=== PATIENT | male | born 1975 | race African-American/Black ===

== ENCOUNTER 2017-08-11 00:40 | Emergency (ER) | payer MEDICAID ==
[~2017-08-11] VITALS: Ht 182.9 cm; Wt 85.0 kg
[~2017-08-11 00:40] MED LIST: ARIP30TA2; DIPH50CA4; GEODON; LURA20TA; TRILIPTAL
[2017-08-11] MEDS ORDERED: KETOROLAC 60MG/2ML VIAL IM STA (07:59)
[2017-08-11] MEDS ORDERED: CYCLOBENZAPRINE 10MG TABLET PO ONE (08:00)
[2017-08-11 10:13] VITALS: BP 130/88
== END 2017-08-11 10:14 | disposition home or self-care (01) ==
LOC: ER 00:40
DX: M54.41 Lumbago with sciatica, right side (principal); Z88.0 Allergy status to penicillin
CPT/HCPCS: 72100; 96372; 99284; J1885

== ENCOUNTER 2019-10-05 18:59 | Emergency (ER) | payer MEDICAID ==
[~2019-10-05] VITALS: Ht 185.4 cm; Wt 86.0 kg
[2019-10-05] MEDS ORDERED: KETOROLAC 30MG/ML VIAL IM ONE (20:15)
[2019-10-05 21:15] VITALS: BP 127/79
== END 2019-10-05 21:16 | disposition home or self-care (01) ==
LOC: ER 18:59
DX: M62.830 Muscle spasm of back (principal); M54.30 Sciatica, unspecified side; F31.9 Bipolar disorder, unspecified; Z88.0 Allergy status to penicillin
CPT/HCPCS: 96372; 99283; J1885

== ENCOUNTER 2020-12-12 07:21 | Emergency (ER) | payer MEDICAID ==
[~2020-12-12] VITALS: Ht 172.7 cm; Wt 78.0 kg
[2020-12-12] MEDS ORDERED: ARIP15TA7 PO (08:17)
[2020-12-12] MEDS ORDERED: LURA20TA PO (08:19)
[2020-12-12 09:34] VITALS: BP 110/74
== END 2020-12-12 09:28 | disposition home or self-care (01) ==
LOC: ER 07:41
DX: Z76.0 Encounter for issue of repeat prescription (principal); F31.9 Bipolar disorder, unspecified; Z91.14 Patient's other noncompliance with medication regimen; Z88.0 Allergy status to penicillin
CPT/HCPCS: 99283

== ENCOUNTER 2021-02-16 19:36 | Emergency (ER) | payer MEDICAID ==
[~2021-02-16] VITALS: Ht 185.4 cm; Wt 90.0 kg
[~2021-02-16 19:36] MED LIST changes: +ARIP15TA14 PO; +LURA20TA PO
[2021-02-16 23:59] VITALS: BP 113/79
[2021-02-17 00:13] LABS: BASOPHILS % 0.5 % (0.0-2.0); EOSINOPHILS % 0.3 % (0.0-5.0); HEMATOCRIT. 41.4 % (42.0-52.0); HEMOGLOBIN. 14.7 g/dL (14.0-18.0); LYMPHOCYTES % 19.6 % (20.0-50.0); MEAN CORPUSCULAR HEMOGLOBIN 33.5 pg (28.0-32.0); MEAN CORPUSCULAR VOLUME 94.2 fL (80.0-94.0); MEAN PLATELET VOLUME 9.1 fl (7.4-10.4); MONOCYTES % 5.7 % (2.0-8.0); NEUTROPHILS % 73.9 % (40.0-76.0); PLATELET 185 x1000/uL (130-400); RED CELL DISTRIBUTION WIDTH 12.8 % (11.6-14.6)
[2021-02-17 00:22] LABS: CLARITY URINE CLEAR (CLEAR); COLOR URINE YELLOW (YELLOW); KETONES URINE TRACE (NEGATIVE); LEUKOCYTE ESTERASE URINE TRACE (NEGATIVE); NITRITE URINE NEGATIVE (NEGATIVE); OCCULT BLOOD URINE NEGATIVE (NEGATIVE); PH URINE 6.5 (4.5-8.0); PROTEIN URINE 1+ (NEGATIVE); SPECIFIC GRAVITY URINE 1.029 (1.005-1.030)
[2021-02-17 00:39] LABS: OPIATES URINE SCREEN NEGATIVE (NEGATIVE); PHENCYCLIDINE URINE SCREEN NEGATIVE (NEGATIVE)
[2021-02-17 00:40] LABS: *AMPHETAMINES SCREEN URINE NEGATIVE (NEGATIVE); *BARBITURATES SCREEN URINE NEGATIVE (NEGATIVE); *BENZODIAZEPINES SCREEN URINE NEGATIVE (NEGATIVE); *COCAINE SCREEN URINE NEGATIVE (NEGATIVE); CANNABINOID URINE SCREEN PRESUMTIVE POSITIVE (NEGATIVE); METHADONE URINE SCREEN NEGATIVE (NEGATIVE)
[2021-02-17 00:53] LABS: CHLORIDE 109 mEq/L (98-107)
[2021-02-17 00:57] LABS: ETHANOL BLOOD < 10 mg/dL
[2021-02-17] MEDS ORDERED: MAGNESIUM/ALUMINUM HYDROXIDE/SIMETHICONE 30ML UDC PO ONE (01:15)
[2021-02-17] MEDS ORDERED: OMEP20CA14 MT (01:57)
== END 2021-02-17 02:48 | disposition home or self-care (01) ==
LOC: ER 19:36
DX: R10.13 Epigastric pain (principal); F41.9 Anxiety disorder, unspecified; Z79.899 Other long term (current) drug therapy; Z88.0 Allergy status to penicillin
CPT/HCPCS: 36415; 71045; 80053; 80305; 80320; 81003; 84484; 85025; 93005; 99285; G0480

== ENCOUNTER 2021-07-26 05:55 | Emergency (ER) | payer MEDICAID ==
[~2021-07-26] VITALS: Ht 185.4 cm; Wt 80.0 kg
[~2021-07-26 05:55] MED LIST changes: +OMEP20CA14 MT
[2021-07-26 06:30] VITALS: BP 133/91
[2021-07-26] MEDS ORDERED: KETOROLAC 60MG/2ML VIAL IM STA (08:24)
[2021-07-26 09:17] LABS: CLARITY URINE CLEAR (CLEAR); COLOR URINE YELLOW (YELLOW); KETONES URINE NEGATIVE (NEGATIVE); LEUKOCYTE ESTERASE URINE NEGATIVE (NEGATIVE); NITRITE URINE NEGATIVE (NEGATIVE); OCCULT BLOOD URINE NEGATIVE (NEGATIVE); PH URINE 6.5 (4.5-8.0); PROTEIN URINE NEGATIVE (NEGATIVE); SPECIFIC GRAVITY URINE 1.014 (1.005-1.030); UROBILINOGEN URINE 0.2 E.U./dL (0.2-1.0)
[2021-07-26 09:27] LABS: BASOPHILS % 0.5 % (0.0-2.0); HEMATOCRIT. 48.8 % (42.0-52.0); HEMOGLOBIN. 16.7 g/dL (14.0-18.0); LYMPHOCYTES % 26.1 % (20.0-50.0); MEAN CORPUSCULAR HEMOGLOBIN 32.4 pg (28.0-32.0); MEAN CORPUSCULAR VOLUME 94.7 fL (80.0-94.0); MONOCYTES % 9.6 % (2.0-8.0); NEUTROPHILS % 62.8 % (40.0-76.0); PLATELET 182 x1000/uL (130-400); RED BLOOD CELL COUNT 5.16 mill/uL (4.7-6.1); RED CELL DISTRIBUTION WIDTH 14.1 % (11.6-14.6)
[2021-07-26 09:34] LABS: CHLORIDE 105 mEq/L (98-107)
[2021-07-26] MEDS ORDERED: LIDO700A30 TP (12:32)
[2021-07-26] MEDS ORDERED: METH-653 MT (12:35)
== END 2021-07-26 13:02 | disposition home or self-care (01) ==
LOC: ER 05:55
DX: M54.50 Low back pain, unspecified (principal); R05.9 Cough, unspecified; Z79.899 Other long term (current) drug therapy; Z88.0 Allergy status to penicillin
CPT/HCPCS: 36415; 74176; 80053; 81003; 83605; 83690; 85025; 96372; 99284; J1885

== ENCOUNTER 2021-10-28 01:24 | Emergency (ER) | payer MEDICAID ==
[~2021-10-28] VITALS: Ht 180.3 cm; Wt 82.0 kg
[~2021-10-28 01:24] MED LIST changes: -DIPH50CA4; +DIPH50CA41; +LIDO700A30 TP; +METH-653 MT
[2021-10-28 03:18] LABS: BASOPHILS % 0.6 % (0.0-2.0); EOSINOPHILS % 0.6 % (0.0-5.0); HEMATOCRIT. 44.2 % (42.0-52.0); HEMOGLOBIN. 15.4 g/dL (14.0-18.0); LYMPHOCYTES % 29.2 % (20.0-50.0); MEAN CORPUSCULAR HEMOGLOBIN 32.5 pg (28.0-32.0); MEAN CORPUSCULAR VOLUME 93.6 fL (80.0-94.0); MEAN PLATELET VOLUME 9.6 fl (7.4-10.4); NEUTROPHILS % 62.6 % (40.0-76.0); PLATELET 172 x1000/uL (130-400); RED BLOOD CELL COUNT 4.73 mill/uL (4.7-6.1); RED CELL DISTRIBUTION WIDTH 13.2 % (11.6-14.6)
[2021-10-28 03:21] LABS: CHLORIDE 106 mEq/L (98-107)
[2021-10-28] MEDS ORDERED: IBUP-2029 MT (04:27)
[2021-10-28] MEDS ORDERED: CLIN-116 MT (04:27)
[2021-10-28 06:14] VITALS: BP 143/87
== END 2021-10-28 06:14 | disposition home or self-care (01) ==
LOC: ER 01:24
DX: R07.89 Other chest pain (principal); R07.0 Pain in throat; Z88.0 Allergy status to penicillin
CPT/HCPCS: 36415; 71045; 80053; 83880; 84484; 85025; 85379; 93005; 99285

== ENCOUNTER 2025-01-31 21:01 | Emergency (ER) | payer MEDICAID ==
[~2025-01-31] VITALS: Ht 182.9 cm; Wt 78.0 kg
[~2025-01-31 21:01] MED LIST changes: -ARIP15TA14 PO; +ARIP15TA66 PO; +CLIN-116 MT; +IBUP-1455 MT
[2025-02-01] MEDS: KETOROLAC 30MG/ML VIAL IM ONE (01:40)
[2025-02-01] MEDS ORDERED: PROPOFOL 200MG/20ML VIAL IV ONE ×2 (02:15→03:21)
[2025-02-01] MEDS ORDERED: ONDANSETRON HCL 4MG/2ML INJ IV ONE (02:15)
[2025-02-01 03:00] VITALS: O2SAT 100
[2025-02-01] MEDS ORDERED: ONDANSETRON HCL 4MG/2ML INJ ONE (03:21)
[2025-02-01 05:20] VITALS: BP 145/84; PULSE 63; RESP 15; TEMP 36.8; O2SAT 99
[2025-02-01] MEDS ORDERED: NAPR-1176 MT (05:23)
[2025-02-01] MEDS ORDERED: PROPOFOL 10MG/ML 100ML 100 ML IV SCH (05:30)
[2025-02-01] MEDS ORDERED: ONDANSETRON HCL 4MG/2ML INJ IV NR (05:45)
== END 2025-02-01 05:38 | disposition home or self-care (01) ==
LOC: ER 21:01
DX: S42.101A Fracture of unspecified part of scapula, right shoulder, initial encounter for closed fracture (principal); S43.004A Unspecified dislocation of right shoulder joint, initial encounter; Z79.1 Long term (current) use of non-steroidal anti-inflammatories (NSAID); Z79.899 Other long term (current) drug therapy; Z88.0 Allergy status to penicillin; V00.141A Fall from scooter (nonmotorized), initial encounter; Y93.89 Activity, other specified; Y92.89 Other specified places as the place of occurrence of the external cause; Y99.8 Other external cause status
CPT/HCPCS: 23575; 73030; 99152; 99291; 73200; 96372; J1885; J2405; J2704; 23665; A4565